=== PATIENT | male | born 1990 | race Two or more races ===

== ENCOUNTER 2017-08-03 00:50 | Emergency (ER) | payer OTHER ==
[2017-08-03 02:19] LABS: microscopic required? NO
[2017-08-03 02:45] LABS: UA SPECIFIC GRAVITY 1.025 (1.005-1.035); urine erythrocyte NEGATIVE (NEGATIVE)
[2017-08-03 03:05] VITALS: BP 124/83
== END 2017-08-03 03:15 | disposition home or self-care (01) ==
LOC: ED 00:50
PROVIDERS: Emergency Medicine
DX: A64 Unspecified sexually transmitted disease (principal)
CPT/HCPCS: 87491; 87591; J0696; Q0162

== ENCOUNTER 2017-09-14 15:39 | Emergency (ER) | payer OTHER | END 2017-09-14 17:23 | disposition left against medical advice (07) | LOC: ED 15:39 | DX: Z53.21 Procedure and treatment not carried out due to patient leaving prior to being seen by health care provider (principal) ==

== ENCOUNTER 2017-09-16 15:37 | Emergency (ER) | payer OTHER ==
[~2017-09-16] VITALS: Ht 175.3 cm; Wt 91.6 kg
[2017-09-16 17:28] VITALS: Ht 175.3 cm; Wt 91.6 kg
[2017-09-16 22:08] VITALS: BP 110/72
== END 2017-09-16 22:12 | disposition home or self-care (01) ==
LOC: ED 15:37
DX: J11.1 Influenza due to unidentified influenza virus with other respiratory manifestations (principal)
CPT/HCPCS: 87804; J1885